=== PATIENT | male | born 1980 | race Caucasian/White ===

== ENCOUNTER 2019-10-10 14:34 | Emergency (ER) | payer MEDICARE, MEDICAID ==
[~2019-10-10] VITALS: Ht 190.5 cm; Wt 104.5 kg
[2019-10-10 14:39] VITALS: Ht 190.5 cm; Wt 104.5 kg
[2019-10-10] MEDS ORDERED: PROZAC10 MG (14:41)
[2019-10-10] MEDS ORDERED: SUBOXONE 2 MG-01 TAB (14:41)
[2019-10-10] MEDS ORDERED: PREDNISONE50 MG PO (14:48)
[2019-10-10] MEDS ORDERED: AUVI-Q0.3 MG/0.3 IM (14:48)
[2019-10-10 15:28] LABS: BASOPHILS 0.3 % (0-2); EOSINOPHILS 1.8 % (0-7); HEMATOCRIT 41.7 % (42.0-54.0); HEMOGLOBIN 12.7 g/dL (13.5-17.5); IMMATURE GRANULOCYTES 0.3 % (0-5); LYMPHOCYTES 20.9 % (15-50); MCH 24.2 pg (26.0-34.0); MCHC 30.5 g/dL (31.0-37.0); MCV 79.4 fL (80.0-100.0); MEAN PLATELET VOLUME 11.1 fL (7.4-10.4); MONOCYTES 9.6 % (2-11); NEUTROPHILS 67.1 % (40-80); PLATELET COUNT 176 10x3/uL (130-400); RBC 5.25 10x6/uL (4.20-6.10); RDW 15.5 % (11.5-14.5); WBC 7.3 10x3/uL (4.8-10.8)
[2019-10-10 15:41] LABS: CALC OSMOLALITY 281 mosm/kg (275-300); CALCIUM 8.7 mg/dL (8.5-10.1); CARBON DIOXIDE 28.7 mmol/L (21.0-32.0); CHLORIDE - SERUM 105 mmol/L (98-107); CREATININE - SERUM 1.1 mg/dL (0.6-1.3); GLUCOSE 111 mg/dL (74-106); SODIUM 141 mmol/L (136-145); UREA NITROGEN 12 mg/dL (7-18); eGFR NON AFRICAN AMERICAN 80 mL/min (90-120)
[2019-10-10 15:47] LABS: ALBUMIN 4.2 g/dL (3.4-5.0); ALKALINE PHOSPHATASE 115 U/L (30-120); ALT (SGPT) 85 U/L (10-68); PROTEIN - SERUM 8.2 g/dL (6.4-8.2)
[2019-10-10 17:00] VITALS: BP 148/84
== END 2019-10-10 17:00 | disposition home or self-care (01) ==
LOC: D.ER 14:34
PROVIDERS: Family Medicine
DX: T78.40XA Allergy, unspecified, initial encounter (principal); T78.2XXA Anaphylactic shock, unspecified, initial encounter

== ENCOUNTER 2020-01-18 14:12 | Emergency (ER) | payer MEDICARE, MEDICAID ==
[~2020-01-18] VITALS: Ht 190.5 cm; Wt 113.6 kg
[~2020-01-18 14:12] MED LIST: AUVI-Q0.3 MG/0.3 IM; PREDNISONE50 MG PO; PROZAC10 MG; SUBOXONE 2 MG-01 TAB
[2020-01-18 14:29] VITALS: BP 163/102; Ht 190.5 cm; Wt 113.6 kg
[2020-01-18] MEDS ORDERED: DOLOPHINE HCL10 MG PO (14:31)
[2020-01-18 17:05] LABS: BASOPHILS 0.1 % (0-2); EOSINOPHILS 0 % (0-7); HEMATOCRIT 41.1 % (42.0-54.0); IMMATURE GRANULOCYTES 0.2 % (0-5); LYMPHOCYTES 6.1 % (15-50); MCH 25.4 pg (26.0-34.0); MCHC 31.6 g/dL (31.0-37.0); MCV 80.4 fL (80.0-100.0); MEAN PLATELET VOLUME 11.5 fL (7.4-10.4); MONOCYTES 6.3 % (2-11); NEUTROPHILS 87.3 % (40-80); PLATELET COUNT 165 10x3/uL (130-400); RBC 5.11 10x6/uL (4.20-6.10); WBC 8.6 10x3/uL (4.8-10.8)
[2020-01-18 17:24] LABS: CALC OSMOLALITY 269 mosm/kg (275-300); CALCIUM 8.7 mg/dL (8.5-10.1); CARBON DIOXIDE 23.8 mmol/L (21.0-32.0); CHLORIDE - SERUM 102 mmol/L (98-107); CREATININE - SERUM 1.1 mg/dL (0.6-1.3); GLUCOSE 113 mg/dL (74-106); POTASSIUM - SERUM 3.5 mmol/L (3.5-5.1); SODIUM 135 mmol/L (136-145); UREA NITROGEN 9 mg/dL (7-18); eGFR NON AFRICAN AMERICAN 80 mL/min (90-120)
[2020-01-18 17:30] LABS: ALBUMIN 3.8 g/dL (3.4-5.0); ALKALINE PHOSPHATASE 122 U/L (30-120); ALT (SGPT) 75 U/L (10-68); BILIRUBIN - TOTAL 0.37 mg/dL (0.2-1.3); PROTEIN - SERUM 8.1 g/dL (6.4-8.2)
[2020-01-18 17:34] LABS: LIPASE 35 U/L (73-393)
[2020-01-18] MEDS ORDERED: PHENERGAN25 M1 PO (18:24)
[2020-01-18] MEDS ORDERED: DEXILANT30 MG PO (18:26)
[2020-01-18] MEDS ORDERED: PROZAC40 MG PO (18:26)
== END 2020-01-18 19:20 | disposition home or self-care (01) ==
LOC: D.ER 14:12
PROVIDERS: Family Medicine
DX: K02.9 Dental caries, unspecified (principal); K04.7 Periapical abscess without sinus; R11.2 Nausea with vomiting, unspecified